=== PATIENT | male | born 1960 | race African-American/Black ===

== ENCOUNTER 2021-07-18 19:22 | Emergency (ER) | payer OTHER ==
[~2021-07-18] VITALS: Ht 170.2 cm; Wt 98.0 kg
[2021-07-18 19:52] VITALS: BP 143/72
== END 2021-07-18 22:42 | disposition home or self-care (01) ==
LOC: ER 19:22
DX: S31.813A Puncture wound without foreign body of right buttock, initial encounter (principal); E11.9 Type 2 diabetes mellitus without complications; I10 Essential (primary) hypertension; E78.5 Hyperlipidemia, unspecified; Z87.891 Personal history of nicotine dependence; X58.XXXA Exposure to other specified factors, initial encounter; Y93.89 Activity, other specified; Y92.89 Other specified places as the place of occurrence of the external cause; Y99.8 Other external cause status
CPT/HCPCS: 99281